=== PATIENT | female | born 1975 | race Two or more races ===

== ENCOUNTER 2017-05-10 06:49 | Emergency (ER) | payer MEDICAID, OTHER ==
[~2017-05-10] VITALS: Ht 152.4 cm; Wt 74.8 kg
[2017-05-10 07:00] VITALS: BP 119/79
== END 2017-05-10 08:12 | disposition home or self-care (01) ==
LOC: ER 06:49
DX: H66.93 Otitis media, unspecified, bilateral (principal); Z98.51 Tubal ligation status
CPT/HCPCS: 71046